=== PATIENT | female | born 1990 | race Caucasian/White ===

== ENCOUNTER 2017-04-03 19:35 | Emergency (ER) | payer OTHER ==
[~2017-04-03 19:35] MED LIST: ALBU1AER INH; BACT800T5 PO; FLOV220A INH
[2017-04-03 19:36] VITALS: BP 155/82; PULSE 102; RESP 16; TEMP 98.8; O2SAT 95
[2017-04-03 20:58] LABS: ALBUMIN 3.8 GM/DL (3.4-5.0); AST (GOT) 73 U/L (15-37); BICARBONATE 23.6 MEQ/L (21.0-32.0); BLOOD UREA NITROGEN 8 MG/DL (7-18); CALCIUM 9.4 MG/DL (8.5-10.1); CHLORIDE 104 MEQ/L (98-107); CREATININE 0.81 MG/DL (0.50-1.00); GLOMERULAR FILTRATION RATE 84 ML/MIN (>89); GLUCOSE,RANDOM 75 MG/DL (74-106); LIPASE 60 U/L (73-393); SODIUM (NA) 138 MEQ/L (136-145)
[2017-04-03 21:00] LABS: ALT (GPT) 115 U/L (10-53)
[2017-04-03 21:01] LABS: ALKALINE PHOSPHATASE 170 U/L (45-117); TOTAL BILIRUBIN ADULT 0.6 MG/DL (0.2-1.0); TOTAL PROTEIN 8.2 GM/DL (6.4-8.2)
[2017-04-03 21:10] LABS: AUTOMATED NEUTROPHIL # 8.7 TH/MM3 (1.8-7.7); BASOPHIL % 0.3 % (0.0-2.0); EOSINOPHIL # 0.2 TH/MM3 (0-0.4); EOSINOPHIL % 1.6 % (0.0-4.0); HEMATOCRIT 42.6 % (35.0-46.0); HEMOGLOBIN 14.2 GM/DL (11.6-15.3); LYMPH % 16.7 % (9.0-44.0); LYMPHOCYTE # 1.9 TH/MM3 (1.0-4.8); MEAN CORPUSCULAR HEMOGLOBIN 26.6 PG (27.0-34.0); MEAN CORPUSCULAR HGB CONC 33.3 % (32.0-36.0); MEAN PLATELET VOLUME 7.9 FL (7.0-11.0); MONO % 6.6 % (0.0-8.0); MONOCYTE # 0.8 TH/MM3 (0-0.9); NEUT % 74.8 % (16.0-70.0); PLATELET COUNT 379 TH/MM3 (150-450); RED BLOOD COUNT 5.32 MIL/MM3 (4.00-5.30); RED CELL DISTRIBUTION WIDTH 14.5 % (11.6-17.2); WHITE BLOOD COUNT 11.6 TH/MM3 (4.0-11.0)
[2017-04-03] MEDS ORDERED: ALBUAER3 INH (21:50)
[2017-04-03] MEDS ORDERED: CORT15T TOPICAL (21:50)
[2017-04-03] MEDS ORDERED: FLUTI220I INH (21:50)
[2017-04-03] MEDS ORDERED: TRAM50TA PO (21:50)
[2017-04-03] MEDS ORDERED: IBUP1TAB7 PO (21:50)
[2017-04-03] MEDS ORDERED: AMOX500C PO (21:50)
[2017-04-03] MEDS ORDERED: KETOROLAC TROMETHAMINE 30 MG/ML (IVP) VIAL IV PUSH ONE (22:15)
[2017-04-03] MEDS ORDERED: ONDANSETRON HCL 4 MG/2 ML VIAL IV PUSH ONE (22:15)
[2017-04-03] MEDS ORDERED: MECLIZINE HCL 25 MG TAB PO ONE (22:15)
--- NOTE | 2017-04-03 22:18 | PD ---
HPI Chief Complaint: GI Complaint Time Seen by Provider: 21:47 Travel History International Travel<30 days: No Contact w/Intl Traveler<30days: No Traveled to known affect area: No History of Present Illness HPI 26yo F with PMH of vertigo here with c/o nausea and vomiting. Said she had 1 episode of vomiting today and there was something red in it and she is worry about blood. Pt recently diagnosed with right ear otitis media and externa and was placed on antibiotics. Said pain has improved but she is too nauseous to take medication today. Denies any fever, chest pain, abdominal pain, urinary complaints, focal weakness or numbness. Said she feels the room spinning and worst with head movement. PFSH Past Medical History Asthma: Yes Cardiovascular Problems: Yes (ENLARGE HEART) Diabetes: No Patient Takes Glucophage: No Diminished Hearing: No Gastrointestinal Disorders: Yes (gallstones) Respiratory: Yes (ASTHMA) Immunizations Current: Yes Tetanus Vaccination: > 5 Years Influenza Vaccination: No ?: Not LMP: Now : 2 Para: 2 Tubal Ligation: Yes Past Surgical History Section: Yes (x2) Cholecystectomy: Yes Family History Family Hypercholesterolemia: No Social History Alcohol Use: Yes (OCCASIONAL) Tobacco Use: No Substance Use: No Allergies-Medications (Allergen,Severity, Reaction): Coded Allergies: shellfish derived (Unverified Allergy, Severe, 10/26/16) UNKNOWN Uncoded Allergies: MUCINEX (Allergy, Severe, 01/26/14) Reported Meds & Prescriptions Reported Meds & Active Scripts Active Reported Flovent Hfa 12 GM Inh (Fluticasone Propionate) 220 Mcg/Act Inh 1 Puff INH BID Use daily at the same time. Proair Hfa 8.5 GM Inh (Albuterol Sulfate) 90 Mcg/Act Aer 2 Puff INH Q4-6H PRN 108 mcg/actuation Tramadol (Tramadol HCl) 50 Mg Tab 50 Mg PO Q4H PRN Ibuprofen 800 Mg Tab 800 Mg PO Q8H PRN Cortisporin Topical (Neomycin/Polymyxin/Bacitr/Hydrocort) 1 Application Oint 1 Applic TOPICAL QID Therapy with this product should be limited to 7 days Amoxicillin 500 Mg Cap 1,000 Mg PO TID Review of Systems Except as stated in HPI: all other systems reviewed are Neg Physical Exam Narrative GENERAL: 26yo F in mild distress. SKIN: Focused skin assessment warm/dry. HEAD: Atraumatic. Normocephalic. EYES: Pupils equal and round. No scleral icterus. No injection or drainage. ENT: Right ear: +Edema in right ear canal. No mastoid ttp. NECK: Trachea midline. No JVD. CARDIOVASCULAR: Regular rate and rhythm. No murmur appreciated. RESPIRATORY: No accessory muscle use. Clear to auscultation. Breath sounds equal bilaterally. GASTROINTESTINAL: Abdomen soft, non-tender, nondistended. MUSCULOSKELETAL: No obvious deformities. No clubbing. No cyanosis. No edema. NEUROLOGICAL: Awake and alert. No obvious cranial nerve deficits. Motor grossly within normal limits. Normal speech. PSYCHIATRIC: Appropriate mood and affect; insight and judgment normal. Data Data Last Documented VS Vital Signs Date Time Temp Pulse Resp B/P (MAP) Pulse Ox O2 Delivery O2 Flow Rate FiO2 04/03/17 19:36 98.8 102 16 155/82 (106) 95 Room Air Orders Orders Complete Blood Count With Diff (04/03/17 19:49) Comprehensive Metabolic Panel (04/03/17 19:49) Lipase (04/03/17 19:49) Ondansetron Inj (Zofran Inj) (04/03/17 22:15) Meclizine (Antivert) (04/03/17 22:15) Ketorolac Inj (Toradol Inj) (04/03/17 22:15) Ed Urine Pregnancytest Poc (04/03/17 22:11) Chest, Single Ap (04/03/17 ) Ed Discharge Order (04/04/17 00:47) Labs Laboratory Tests Test 04/03/17 20:15 White Blood Count 11.6 TH/MM3 Red Blood Count 5.32 MIL/MM3 Hemoglobin 14.2 GM/DL Hematocrit 42.6 % Mean Corpuscular Volume 80.0 FL Mean Corpuscular Hemoglobin 26.6 PG Mean Corpuscular Hemoglobin Concent 33.3 % Red Cell Distribution Width 14.5 % Platelet Count 379 TH/MM3 Mean Platelet Volume 7.9 FL Neutrophils (%) (Auto) 74.8 % Lymphocytes (%) (Auto) 16.7 % Monocytes (%) (Auto) 6.6 % Eosinophils (%) (Auto) 1.6 % Basophils (%) (Auto) 0.3 % Neutrophils # (Auto) 8.7 TH/MM3 Lymphocytes # (Auto) 1.9 TH/MM3 Monocytes # (Auto) 0.8 TH/MM3 Eosinophils # (Auto) 0.2 TH/MM3 Basophils # (Auto) 0.0 TH/MM3 CBC Comment DIFF FINAL Differential Comment Blood Urea Nitrogen 8 MG/DL Creatinine 0.81 MG/DL Random Glucose 75 MG/DL Total Protein 8.2 GM/DL Albumin 3.8 GM/DL Calcium Level 9.4 MG/DL Alkaline Phosphatase 170 U/L Aspartate Amino Transf (AST/SGOT) 73 U/L Alanine Aminotransferase (ALT/SGPT) 115 U/L Total Bilirubin 0.6 MG/DL Sodium Level 138 MEQ/L Potassium Level 3.6 MEQ/L Chloride Level 104 MEQ/L Carbon Dioxide Level 23.6 MEQ/L Anion Gap 10 MEQ/L Estimat Glomerular Filtration Rate 84 ML/MIN Lipase 60 U/L MDM Medical Decision Making Medical Screen Exam Complete: Yes Emergency Medical Condition: Yes Differential Diagnosis Otitis externa vs. vertigo vs. vick blandon tear Narrative Course 26yo F with recently diagnosed otitis media and externa on day 3 of amoxicillin and corticosporin here with c/o nausea and vomiting today. Pt said ear pain has improved. Denies any fever and is nontoxic appearing. Labs reviewed, WBC 11.6. Elevated LFT but pt has no abdominal pain. CXR negative. Pt given toradol, meclizine and zofran. Pt reevaluated at bedside and said she feels much better. No longer nauseous. Able to tolerate PO now. CXR showed no free air. Urine negative. Return precautions given. Diagnosis Primary Impression: Nausea & vomiting Qualified Codes: R11.2 - Nausea with vomiting, unspecified Referrals: Bg Starkey MD as needed Patient Instructions: General Instructions Departure Forms: Tests/Procedures Additional Instructions: Please continue to take your antibiotics. Return to the ED if symptoms worsen. Med/Other Pt SpecificInfo: Prescription(s) given Disposition: 01 DISCHARGE HOME Condition: Stable Paula Rizo DO Apr 03, 2017 22:18
--- NOTE | 2017-04-03 22:39 | RADRPT ---
EXAM DATE/TIME: 04/03/2017 22:22 [facility] COMPARISON: No previous studies available for comparison. INDICATIONS : Nausea, vomiting and diarrhea MEDICAL HISTORY : Asthma SURGICAL HISTORY : None. ENCOUNTER: Initial ACUITY: 2 days PAIN SCORE: 0/10 LOCATION: Bilateral chest FINDINGS: A single view of the chest demonstrates the lungs to be symmetrically aerated without evidence of mas s, infiltrate or effusion. The cardiomediastinal contours are unremarkable. Osseous structures are intact. CONCLUSION: 1. No active disease. Jefry Jaime MD on April 03, 2017 at 22:36 Board Certified Radiologist. This report was verified electronically.
== END 2017-04-04 01:18 | disposition home or self-care (01) ==
LOC: NEPD 19:35
DX: R11.2 Nausea with vomiting, unspecified (principal); J45.909 Unspecified asthma, uncomplicated
CPT/HCPCS: 71045; 80053; 83690; 84703; 85025; 96374; 96375; 99284; J1885; J2405